=== PATIENT | male | born 1965 | race Caucasian/White ===

== ENCOUNTER 2016-12-28 08:32 | Emergency (ER) | payer SELFPAY ==
[~2016-12-28] VITALS: Wt 72.0 kg
[2016-12-28] MEDS ORDERED: ONDANSETRON 4 MG INJ IV STA (08:39)
[2016-12-28] MEDS ORDERED: SOD CHLORIDE 0.9% 1,000 ML IV STA (08:39)
[2016-12-28] MEDS ORDERED: LORAZEPAM 2 MG INJ IV ONE (09:00)
--- NOTE | 2016-12-28 09:05 | RADRPT ---
PROCEDURE: XR Chest. CLINICAL INDICATION: chest pain, abdominal pain TECHNIQUE: Single frontal view of the chest was obtained COMPARISON: None FINDINGS: The heart and mediastinum are within normal limits. The lungs are clear. There is no pleural effusion or pneumothorax. RPTAT: AA IMPRESSION: No acute disease. .Ryan Melgar MD, MD Date Time Electronically viewed and signed by .Ryan Melgar MD, on 12/28/2016 09:04 .S/
[2016-12-28 09:37] LABS: BASOPHILS % 0.3 % (0.0-2.0); EOSINOPHILS % 0.2 % (0.0-7.0); HEMATOCRIT 47.4 % (42.0-52.0); HEMOGLOBIN 16.5 g/dl (14.0-18.0); LYMPHOCYTES # 1.4 10^3/ul (0.8-2.9); MEAN CORPUSCULAR HEMOGLOBIN 31.4 pg (29.0-33.0); MEAN CORPUSCULAR HGB CONC 34.8 g/dl (32.0-37.0); MEAN CORPUSCULAR VOLUME 90.1 fl (82.0-101.0); MEAN PLATELET VOLUME 9.7 fl (7.4-10.4); MONOCYTE # 0.7 10^3/ul (0.3-0.9); MONOCYTES % 5.1 % (0.0-11.0); NEUTROPHILS % 82.9 % (39.0-77.0); PLATELET COUNT 286 10^3/UL (140-415); POSITIVE DIFF @See below; RED BLOOD COUNT 5.26 10^6/ul (4.70-6.10); RED CELL DISTRIBUTION WIDTH 12.5 % (11.5-14.5); WHITE BLOOD COUNT 13.1 10^3/ul (4.8-10.8)
--- NOTE | 2016-12-28 09:40 | ERD ---
ER Documentation Chief Complaint Date/Time DATE: 12/28/16 TIME: 09:26 Chief Complaint sob with mild sob and tachycardia since last night. possible meth use HPI 51-year-old man brought in by EMS from home for intoxication and feeling his like he is withdrawing from alcohol, he also admits to methamphetamine use last night. He admits to palpitations and anxiety, no chest pain or shortness of breath, no fevers or chills, no cough, no vomiting or diarrhea, no blood per rectum. Patient was transported here by EMS without further complications. ROS All systems reviewed and are negative except as per history of present illness. Allergies Allergies: Coded Allergies: No Known Allergy (Unverified , 12/28/16) PMhx/Soc History of Surgery: No Anesthesia Reaction: No Hx Neurological Disorder: No Hx Respiratory Disorders: No Hx Cardiac Disorders: No Hx Psychiatric Problems: No Hx Miscellaneous Medical Probl: No Hx Alcohol Use: Yes Hx Substance Use: Yes Hx Tobacco Use: No Smoking Status: Never smoker FmHx Family History: No diabetes Physical Exam Vitals Vital Signs Date Time Temp Pulse Resp B/P Pulse Ox O2 Delivery O2 Flow Rate FiO2 12/28/16 11:45 98.2 98 20 119/85 98 Room Air 12/28/16 08:44 98.8 144 22 164/101 98 Physical Exam GENERAL: Well-developed, well-nourished, anxious, appears dehydrated and anxious HEENT: Dry mucous membranes, pink conjunctiva, no cervical spine tenderness or step-off deformities, no goiter, no jaundice or icterus, extraocular movements intact without pain. No submandibular induration, and no pharyngeal erythema NEURO: Alert and oriented 3, cranial nerves II through XII intact bilaterally, pupils equal round reactive to light, no focal deficits or facial asymmetry, sensation intact distally Strength 5/5 in upper and lower extremities bilaterally CARDIAC: Tachycardic and regular, no murmurs rubs or gallops LUNGS: Clear bilaterally no wheezing crackles or stridor ABDOMEN: Soft nontender, no guarding, no rigidity, no rebound, no psoas sign no obturator sign. Normoactive bowel sounds SKIN: Warm and dry to touch, no abrasions, contusions, or hematomas, no lacerations, no ecchymosis, no target lesions, and without ulcers EXTREMITIES: No clubbing cyanosis or edema, calves are bilaterally symmetrical, no Homans sign, no popliteal cord sign. Distal pulses equal and bilateral PSYCH: Agitated Result Diagram: 12/28/16 0909 12/28/16 0909 Results 24 hrs Laboratory Tests Test 12/28/16 09:09 White Blood Count 13.110^3/ul Red Blood Count 5.2610^6/ul Hemoglobin 16.5g/dl Hematocrit 47.4% Mean Corpuscular Volume 90.1fl Mean Corpuscular Hemoglobin 31.4pg Mean Corpuscular Hemoglobin Concent 34.8g/dl Red Cell Distribution Width 12.5% Platelet Count 56378^3/UL Mean Platelet Volume 9.7fl Neutrophils % 82.9% Lymphocytes % 11.0% Monocytes % 5.1% Eosinophils % 0.2% Basophils % 0.3% Nucleated Red Blood Cells % 0.0/100WBC Neutrophils # (Manual) 10.910^3/ul Lymphocytes # 1.410^3/ul Monocytes # 0.710^3/ul Eosinophils # 0.010^3/ul Basophils # 0.010^3/ul Nucleated Red Blood Cells # 0.010^3/ul Sodium Level 147mmol/L Potassium Level 4.2mmol/L Chloride Level 106mmol/L Carbon Dioxide Level 21mmol/L Anion Gap 24 Blood Urea Nitrogen 18mg/dl Creatinine 0.80mg/dl Glucose Level 116mg/dl Calcium Level 10.2mg/dl Total Bilirubin 0.7mg/dl Direct Bilirubin 0.00mg/dl Indirect Bilirubin 0.7mg/dl Aspartate Amino Transf (AST/SGOT) 59IU/L Alanine Aminotransferase (ALT/SGPT) 72IU/L Alkaline Phosphatase 85IU/L Troponin I < 0.012ng/ml Total Protein 9.3g/dl Albumin 4.9g/dl Globulin 4.40g/dl Albumin/Globulin Ratio 1.11 Lipase 34U/L Ethyl Alcohol Level < 10.0mg/dl Current Medications Medications (Trade) Dose Ordered Sig/Butch Route PRN Reason Start Time Stop Time Status Last Admin Dose Admin Sodium Chloride (NS) 1,000 ml @ 1,000 mls/hr Q1H STAT IV 12/28/16 08:39 12/28/16 09:38 DC 12/28/16 09:11 Ondansetron HCl (Zofran Inj) 4 mg ONCE STAT IV 12/28/16 08:39 12/28/16 08:44 DC 12/28/16 09:10 Lorazepam 1 mg 1 mg ONCE ONCE IV 12/28/16 09:00 12/28/16 09:01 DC 12/28/16 09:10 Sodium Chloride (NS) 1,000 ml @ 1,000 mls/hr Q1H ONCE IV 12/28/16 10:00 12/28/16 10:59 DC 12/28/16 10:00 Procedures/MDM IV line was established patient was placed on forensic economist rhythm strip revealed a sinus tachycardia at 130 bpm. Patient was afebrile. EKG performed, read by me revealed a sinus tachycardia at 131 bpm, left axis deviation, narrow QRS complex, no concerning ST elevations or depressions noted. I administered 2 L normal saline intravenously and lorazepam 1 mg IV 1.Patient also received Zofran 4 mg IV 1. CBC and electrolytes were normal, liver function tests normal, troponin negative , ethanol level elevated. Chest X-ray 1V Interpreted by me: Soft Tissue: No acute abnormalities Bones: No acute abnormalities Mediastinum/Cardiac Silhouette/Lungs: No acute abnormalities Differential diagnoses considered, included but not limited to acute coronary syndrome, pulmonary embolism, aortic dissection, abdominal aortic aneurysm, sepsis, stroke, meningitis, encephalitis, pneumonia, appendicitis, cholecystitis , bowel obstruction, pyelonephritis, nephrolithiasis, cystitis, as well as metabolic, hematologic, and electrolyte abnormalities. As well as abscess, cellulitis, fractures, and dislocations. Patient feels much better at this time, and vital signs are normal, symptoms have improved. I did give strict instructions to return to the ED if symptoms continue or worsen, patient will otherwise follow-up with primary care physician. Patient understood instructions and agreed to plan. Disclaimer: Inadvertent spelling and grammatical errors are likely due to EHR/ dictation software use and do not reflect on the overall quality of patient care. Also, please note that the electronic time recorded on this note does not necessarily reflect the actual time of the patient encounter. Departure Diagnosis: Primary Impression: Tachycardia Additional Impressions: Dehydration Amphetamine abuse Alcohol abuse Alcohol withdrawal Complication of substance-induced condition: uncomplicated Qualified Code: F10.230 - Alcohol withdrawal syndrome without complication Anxiety Condition: Good GORDON CABRERA MD Dec 28, 2016 09:37
[2016-12-28] MEDS ORDERED: SOD CHLORIDE 0.9% 1,000 ML IV ONE (10:00)
[2016-12-28 10:01] LABS: ALANINE AMINOTRANSFERASE 72 IU/L (13-69); ALBUMIN 4.9 g/dl (3.3-4.9); ALBUMIN/GLOBULIN RATIO 1.11; ALKALINE PHOSPHATASE 85 IU/L (42-121); ANION GAP 24 (8-16); ASPARTATE AMINO TRANSFERASE 59 IU/L (15-46); BILIRUBIN,INDIRECT 0.7 mg/dl (0-1.1); BILIRUBIN,TOTAL 0.7 mg/dl (0.2-1.3); BLOOD UREA NITROGEN 18 mg/dl (7-20); CALCIUM 10.2 mg/dl (8.4-10.2); CARBON DIOXIDE 21 mmol/L (21-31); CHLORIDE 106 mmol/L (97-110); GLUCOSE 116 mg/dl (70-220); POTASSIUM 4.2 mmol/L (3.5-5.1); SODIUM 147 mmol/L (135-144); TOTAL PROTEIN 9.3 g/dl (6.1-8.1)
[2016-12-28 10:25] LABS: ETHANOL < 10.0 mg/dl; TROPONIN-I < 0.012 ng/ml (0.00-0.12)
[2016-12-28 11:45] VITALS: BP 119/85; PULSE 98; RESP 20; TEMP 98.2
== END 2016-12-28 12:49 | disposition home or self-care (01) ==
LOC: E/R 08:32
DX: R00.0 Tachycardia, unspecified (principal); R40.2252 Coma scale, best verbal response, oriented, at arrival to emergency department; E86.0 Dehydration; F15.10 Other stimulant abuse, uncomplicated; F10.230 Alcohol dependence with withdrawal, uncomplicated; F41.9 Anxiety disorder, unspecified; R40.2142 Coma scale, eyes open, spontaneous, at arrival to emergency department; R40.2362 Coma scale, best motor response, obeys commands, at arrival to emergency department
CPT/HCPCS: 36415; 71010; 80053; 80306; 83690; 84484; 85025; 93005; 96361; 96374; 96375; 99285; J2060; J2405; J7030

== ENCOUNTER 2017-08-18 10:20 | Emergency (ER) | END 2017-08-18 16:43 | disposition home or self-care (01) ==